=== PATIENT | male | born 1965 | race Caucasian/White ===

== ENCOUNTER 2022-09-23 13:41 | Emergency (ER) | payer MEDICAID ==
[~2022-09-23] VITALS: Ht 177.8 cm; Wt 82.0 kg
[2022-09-23 13:44] VITALS: BP 104/65
[2022-09-23] MEDS ORDERED: ACETAMINOPHEN 325MG TABLET PO ONE (14:45)
== END 2022-09-24 02:27 | disposition home or self-care (01) ==
LOC: ER 13:41
DX: R51.9 Headache, unspecified (principal); I10 Essential (primary) hypertension; E11.9 Type 2 diabetes mellitus without complications; Z98.890 Other specified postprocedural states; Y04.0XXA Assault by unarmed brawl or fight, initial encounter; Y93.89 Activity, other specified; Y92.89 Other specified places as the place of occurrence of the external cause; Y99.8 Other external cause status
CPT/HCPCS: 99284